=== PATIENT | female | born 1980 | race Caucasian/White ===

== ENCOUNTER → 2021-05-01 | Day surgery (SDC) | payer OTHER ==
[~2021-05-01] MED LIST: KETAMINE HCL 200 MG/20 ML VIAL ONE; KETAMINE HCL 500 MG/10 ML VIAL ONE; PROPOFOL 20 ML ONE; SUCCINYLCHOLINE CHLORIDE 200 MG/10 ML SYRINGE ONE
[2021-05-01 08:58] VITALS: BMI 21.4
[2021-05-01 11:10] VITALS: TEMP 98.1
[2021-05-01 11:16] VITALS: BP 101/69; PULSE 79
== END | disposition home or self-care (01) ==
LOC: FECT 08:01
PROVIDERS: ATTEND Psychiatry & Neurology Psychiatry
PROC: GZB4ZZZ Other Electroconvulsive Therapy (ICD-10-PCS; principal; 2021-05-01 10:30)
DX: F32.9 Major depressive disorder, single episode, unspecified (principal)
CPT/HCPCS: 84703; 90870; 94760; C9803; U0003; U0005

== ENCOUNTER 2021-05-04 06:28 | Day surgery (SDC) | payer OTHER ==
[2021-05-01 11:09] VITALS: BMI 21.2
[2021-05-04 09:28] VITALS: TEMP 98.1
[2021-05-04 09:52] VITALS: BP 112/61; PULSE 71
== END 2021-05-04 09:53 | disposition home or self-care (01) ==
LOC: FECT 06:28
PROVIDERS: ATTEND Psychiatry & Neurology Psychiatry
PROC: GZB4ZZZ Other Electroconvulsive Therapy (ICD-10-PCS; principal; 2021-05-04 08:30)
DX: F32.9 Major depressive disorder, single episode, unspecified (principal)
CPT/HCPCS: 90870; 94760

== ENCOUNTER 2021-05-05 05:58 | Day surgery (SDC) | payer OTHER ==
[2021-05-04 10:08] VITALS: BMI 21.2
[2021-05-05] MEDS ORDERED: KETAMINE HCL 500 MG/10 ML VIAL ONE (07:29)
[2021-05-05 08:10] VITALS: TEMP 98.6
[2021-05-05 08:52] VITALS: BP 101/65; PULSE 67
== END 2021-05-05 09:00 | disposition home or self-care (01) ==
LOC: FECT 05:58
PROVIDERS: ATTEND Psychiatry & Neurology Psychiatry
PROC: GZB4ZZZ Other Electroconvulsive Therapy (ICD-10-PCS; principal; 2021-05-05 07:30)
DX: F32.9 Major depressive disorder, single episode, unspecified (principal)
CPT/HCPCS: 81025; 90870; 94760; C9803; U0003; U0005

== ENCOUNTER 2021-05-08 07:21 | Day surgery (SDC) | payer OTHER ==
[2021-05-08 07:52] VITALS: BMI 21.9
[2021-05-08] MEDS ORDERED: KETAMINE HCL 500 MG/10 ML VIAL ONE (09:04)
[2021-05-08 09:49] VITALS: PULSE 68
[2021-05-08 10:30] VITALS: BP 114/70; TEMP 97.8
== END 2021-05-08 10:30 | disposition home or self-care (01) ==
LOC: FECT 07:21
PROVIDERS: ATTEND Psychiatry & Neurology Psychiatry
PROC: GZB4ZZZ Other Electroconvulsive Therapy (ICD-10-PCS; principal; 2021-05-08 09:30)
DX: F32.9 Major depressive disorder, single episode, unspecified (principal)
CPT/HCPCS: 90870; 94760; C9803; U0003; U0005

== ENCOUNTER 2021-05-11 06:54 | Day surgery (SDC) | payer OTHER ==
[2021-05-02 16:34] VITALS: BMI 21.2
[2021-05-11] MEDS ORDERED: KETAMINE HCL 500 MG/10 ML VIAL ONE (08:40)
[2021-05-11 09:40] VITALS: PULSE 88; TEMP 98.4
[2021-05-11 09:42] VITALS: BP 120/70
== END 2021-05-11 10:02 | disposition home or self-care (01) ==
LOC: FECT 06:54
PROVIDERS: ATTEND Psychiatry & Neurology Psychiatry
PROC: GZB4ZZZ Other Electroconvulsive Therapy (ICD-10-PCS; principal; 2021-05-11 09:00)
DX: F32.9 Major depressive disorder, single episode, unspecified (principal)
CPT/HCPCS: 84703; 90870; 94760

== ENCOUNTER 2021-05-12 05:57 | Day surgery (SDC) | payer OTHER ==
[2021-05-08 12:53] VITALS: BMI 21.9
[2021-05-12] MEDS ORDERED: KETAMINE HCL 500 MG/10 ML VIAL ONE (07:26)
[2021-05-12] MEDS ORDERED: SUCCINYLCHOLINE CHLORIDE 200 MG/10 ML SYRINGE ONE (07:40)
[2021-05-12 08:32] VITALS: PULSE 72
[2021-05-12 08:52] VITALS: BP 123/75; TEMP 97.7
== END 2021-05-12 08:45 | disposition home or self-care (01) ==
LOC: FECT 05:57
PROVIDERS: ATTEND Psychiatry & Neurology Psychiatry
PROC: GZB4ZZZ Other Electroconvulsive Therapy (ICD-10-PCS; principal; 2021-05-12 07:30)
DX: F32.9 Major depressive disorder, single episode, unspecified (principal)
CPT/HCPCS: 90870; 94760; C9803; U0003; U0005

== ENCOUNTER 2021-05-15 06:45 | Day surgery (SDC) | payer OTHER ==
[2021-05-08 12:56] VITALS: BMI 21.9
[2021-05-15] MEDS ORDERED: PROPOFOL 20 ML ONE (09:11)
[2021-05-15] MEDS ORDERED: SUCCINYLCHOLINE CHLORIDE 200 MG/10 ML SYRINGE ONE (09:11)
[2021-05-15] MEDS ORDERED: KETAMINE HCL 500 MG/10 ML VIAL ONE (09:12)
[2021-05-15 10:02] VITALS: TEMP 98.4
[2021-05-15 10:19] VITALS: BP 118/70; PULSE 75
== END 2021-05-15 10:30 | disposition home or self-care (01) ==
LOC: FECT 06:45
PROVIDERS: ATTEND Psychiatry & Neurology Psychiatry
PROC: GZB4ZZZ Other Electroconvulsive Therapy (ICD-10-PCS; principal; 2021-05-15 09:00)
DX: F32.9 Major depressive disorder, single episode, unspecified (principal)
CPT/HCPCS: 81025; 90870; 94760; C9803; U0003; U0005

== ENCOUNTER 2021-05-18 06:12 | Day surgery (SDC) | payer OTHER ==
[2021-05-11 08:03] VITALS: BMI 21.9
[2021-05-18] MEDS ORDERED: KETAMINE HCL 500 MG/10 ML VIAL ONE (07:21)
[2021-05-18 08:01] VITALS: TEMP 97.2
[2021-05-18 09:02] VITALS: BP 110/72; PULSE 76
== END 2021-05-18 09:06 | disposition home or self-care (01) ==
LOC: FECT 06:12
PROVIDERS: ATTEND Psychiatry & Neurology Psychiatry
PROC: GZB4ZZZ Other Electroconvulsive Therapy (ICD-10-PCS; principal; 2021-05-18 08:00)
DX: F32.9 Major depressive disorder, single episode, unspecified (principal)
CPT/HCPCS: 90870; 94760

== ENCOUNTER 2021-05-19 05:56 | Day surgery (SDC) | payer OTHER ==
[2021-05-11 07:57] VITALS: BMI 21.9
[2021-05-19] MEDS ORDERED: KETAMINE HCL 500 MG/10 ML VIAL ONE (06:56)
[2021-05-19 08:12] VITALS: PULSE 74; TEMP 97.8
[2021-05-19 09:22] VITALS: BP 118/71
== END 2021-05-19 09:00 | disposition home or self-care (01) ==
LOC: FECT 05:56
PROVIDERS: ATTEND Psychiatry & Neurology Psychiatry
PROC: GZB4ZZZ Other Electroconvulsive Therapy (ICD-10-PCS; principal; 2021-05-19 07:30)
DX: F32.9 Major depressive disorder, single episode, unspecified (principal)
CPT/HCPCS: 81025; 90870; 94760; C9803; U0003; U0005

== ENCOUNTER 2021-05-22 06:02 | Day surgery (SDC) | payer OTHER ==
[2021-05-22 06:35] VITALS: BMI 21.9
[2021-05-22] MEDS ORDERED: KETAMINE HCL 500 MG/10 ML VIAL ONE (07:11)
[2021-05-22 08:11] VITALS: TEMP 98.2
[2021-05-22 08:35] VITALS: BP 121/82; PULSE 78
== END 2021-05-22 08:38 | disposition home or self-care (01) ==
LOC: FECT 06:02
PROVIDERS: ATTEND Psychiatry & Neurology Psychiatry
PROC: GZB4ZZZ Other Electroconvulsive Therapy (ICD-10-PCS; principal; 2021-05-22 07:30)
DX: F32.9 Major depressive disorder, single episode, unspecified (principal)
CPT/HCPCS: 90870; 94760

== ENCOUNTER 2021-07-13 08:59 | Day surgery (SDC) | payer OTHER ==
[2021-07-13 10:14] VITALS: TEMP 98.1; BMI 21.6
[2021-07-13] MEDS ORDERED: KETAMINE HCL 500 MG/10 ML VIAL ONE (10:29)
[2021-07-13 12:26] VITALS: BP 124/74; PULSE 84
== END 2021-07-13 12:15 | disposition home or self-care (01) ==
LOC: FECT 08:59
PROVIDERS: ATTEND Psychiatry & Neurology Psychiatry
PROC: GZB4ZZZ Other Electroconvulsive Therapy (ICD-10-PCS; principal; 2021-07-13 10:30)
DX: F32.9 Major depressive disorder, single episode, unspecified (principal)
CPT/HCPCS: 84703; 90870; 94760

== ENCOUNTER 2021-07-20 07:20 | Day surgery (SDC) | payer OTHER ==
[2021-07-19 13:06] VITALS: BMI 21.6
[2021-07-20] MEDS ORDERED: KETAMINE HCL 500 MG/10 ML VIAL ONE (08:59)
[2021-07-20 10:05] VITALS: PULSE 60; TEMP 98
[2021-07-20 10:35] VITALS: BP 118/72
== END 2021-07-20 10:38 | disposition home or self-care (01) ==
LOC: FECT 07:20
PROVIDERS: ATTEND Psychiatry & Neurology Psychiatry
PROC: GZB4ZZZ Other Electroconvulsive Therapy (ICD-10-PCS; principal; 2021-07-20 09:00)
DX: F32.9 Major depressive disorder, single episode, unspecified (principal)
CPT/HCPCS: 84703; 90870; 94760

== ENCOUNTER 2021-07-24 05:55 | Day surgery (SDC) | payer OTHER ==
[2021-07-24 06:45] VITALS: BMI 21.6
[2021-07-24] MEDS ORDERED: KETAMINE HCL 500 MG/10 ML VIAL ONE (07:21)
[2021-07-24 08:38] VITALS: TEMP 97.8
[2021-07-24 08:56] VITALS: BP 122/73; PULSE 76
== END 2021-07-24 08:58 | disposition home or self-care (01) ==
LOC: FECT 05:55
PROVIDERS: ATTEND Psychiatry & Neurology Psychiatry
PROC: GZB4ZZZ Other Electroconvulsive Therapy (ICD-10-PCS; principal; 2021-07-24 07:30)
DX: F32.9 Major depressive disorder, single episode, unspecified (principal)
CPT/HCPCS: 81025; 90870; 94760; C9803; U0003; U0005

== ENCOUNTER 2021-07-27 05:51 | Day surgery (SDC) | payer OTHER ==
[2021-07-25 17:05] VITALS: BMI 21.6
[2021-07-27] MEDS ORDERED: KETAMINE HCL 500 MG/10 ML VIAL ONE (07:21)
[2021-07-27 08:27] VITALS: TEMP 97.7
[2021-07-27 08:54] VITALS: BP 116/72; PULSE 72
== END 2021-07-27 08:56 | disposition home or self-care (01) ==
LOC: FECT 05:51
PROVIDERS: ATTEND Psychiatry & Neurology Psychiatry
PROC: GZB4ZZZ Other Electroconvulsive Therapy (ICD-10-PCS; principal; 2021-07-27 07:30)
DX: F32.9 Major depressive disorder, single episode, unspecified (principal)
CPT/HCPCS: 81025; 90870; 94760; C9803; U0003; U0005

== ENCOUNTER 2021-07-31 06:11 | Day surgery (SDC) | payer OTHER ==
[2021-07-28 16:23] VITALS: BMI 21.6
[2021-07-31] MEDS ORDERED: KETAMINE HCL 500 MG/10 ML VIAL ONE (07:28)
[2021-07-31 08:12] LABS: ALBUMIN 3.7 g/dl (3.4-5.0); BILIRUBIN,TOTAL 0.6 mg/dl (0.2-1); CALCIUM 8.9 mg/dl (8.5-10); CREATININE 0.9 mg/dl (0.55-1.3); TOT PROT 6.2 g/dl (6.4-8.2)
[2021-07-31 08:22] VITALS: TEMP 97.7
[2021-07-31 08:56] VITALS: BP 116/64; PULSE 82
[2021-07-31 09:22] LABS: BASO % 1.1 % (0-2.0); EOS % 5.8 % (0-4.5); HEMATOCRIT 36.4 % (32.4-45.2); HEMOGLOBIN 12.4 GM/dL (10.7-15.3); LYMPH % 24.8 % (8-40); MCH 30.5 pg (25.7-33.7); MCHC 33.9 g/dl (32.0-36.0); MEAN CELL VOLUME 89.8 fl (80-96); MEAN PLT VOLUME 7.5 fl (7.5-11.1); MONO % 7.4 % (3.8-10.2); NEUT % 60.9 % (42.8-82.8); PLATELET COUNT 378 10^3/uL (134-434); RBC 4.05 M/mm3 (3.60-5.2); RDW 15.1 % (11.6-15.6); WHITE BLOOD COUNT 5.6 K/mm3 (4.0-10.0)
== END 2021-07-31 09:00 | disposition home or self-care (01) ==
LOC: FECT 06:11
PROVIDERS: ATTEND Psychiatry & Neurology Psychiatry
PROC: GZB4ZZZ Other Electroconvulsive Therapy (ICD-10-PCS; principal; 2021-07-31 07:30)
DX: F33.9 Major depressive disorder, recurrent, unspecified (principal)
CPT/HCPCS: 36415; 80053; 81025; 85025; 90870; 94760

== ENCOUNTER 2021-08-07 05:55 | Day surgery (SDC) | payer OTHER ==
[2021-08-01 10:45] VITALS: BMI 21.6
[2021-08-07] MEDS ORDERED: KETAMINE HCL 500 MG/10 ML VIAL ONE (07:26)
[2021-08-07 08:18] VITALS: TEMP 97.8
[2021-08-07 08:56] VITALS: BP 116/72; PULSE 81
== END 2021-08-07 08:58 | disposition home or self-care (01) ==
LOC: FASU 05:55 → FECT 05:55 → FASU 08:58
PROVIDERS: ATTEND Psychiatry & Neurology Psychiatry
PROC: GZB4ZZZ Other Electroconvulsive Therapy (ICD-10-PCS; principal; 2021-08-07 07:30)
DX: F33.2 Major depressive disorder, recurrent severe without psychotic features (principal)
CPT/HCPCS: 81025; 90870; 94760; C9803; U0003; U0005

== ENCOUNTER 2021-08-10 05:58 | Day surgery (SDC) | payer OTHER ==
[2021-08-10 06:47] VITALS: BMI 21.6
[2021-08-10] MEDS ORDERED: KETAMINE HCL 500 MG/10 ML VIAL ONE (07:31)
[2021-08-10] MEDS ORDERED: ONDANSETRON 4 MG/2 ML VIAL ONE (07:35)
[2021-08-10] MEDS ORDERED: LIDOCAINE HCL/PF 2% SDV 5ML VIAL ONE (07:35)
[2021-08-10] MEDS ORDERED: PROPOFOL 20 ML ONE (07:36)
[2021-08-10] MEDS ORDERED: SUCCINYLCHOLINE CHLORIDE 200 MG/10 ML SYRINGE ONE (07:36)
[2021-08-10 08:39] VITALS: TEMP 97.8
[2021-08-10 08:58] VITALS: BP 110/67; PULSE 58
[2021-08-12 05:06] LABS: SARS-CoV-2 NAA Not Detected (Not Detected)
== END 2021-08-10 09:00 | disposition home or self-care (01) ==
LOC: FECT 05:58
PROVIDERS: ATTEND Psychiatry & Neurology Psychiatry
PROC: GZB4ZZZ Other Electroconvulsive Therapy (ICD-10-PCS; principal; 2021-08-10 07:30)
DX: F32.9 Major depressive disorder, single episode, unspecified (principal)
CPT/HCPCS: 90870; 94760; C9803; U0003; U0005

== ENCOUNTER 2021-08-14 05:56 | Day surgery (SDC) | payer OTHER ==
[2021-08-10 14:52] VITALS: BMI 21.6
[2021-08-14] MEDS ORDERED: KETAMINE HCL 500 MG/10 ML VIAL ONE (07:35)
[2021-08-14 08:29] VITALS: TEMP 97.7
[2021-08-14 09:02] VITALS: BP 116/72; PULSE 72
[2021-08-15 14:13] LABS: SARS-CoV-2 NAA Not Detected (Not Detected)
== END 2021-08-14 09:14 | disposition home or self-care (01) ==
LOC: FECT 05:56
PROVIDERS: ATTEND Psychiatry & Neurology Psychiatry
PROC: GZB4ZZZ Other Electroconvulsive Therapy (ICD-10-PCS; principal; 2021-08-14 07:30)
DX: F32.9 Major depressive disorder, single episode, unspecified (principal)
CPT/HCPCS: 81025; 90870; 94760; C9803; U0003; U0005

== ENCOUNTER 2021-08-29 05:53 | Day surgery (SDC) | payer OTHER ==
[2021-08-23 08:29] VITALS: BMI 21.6
[2021-08-29] MEDS ORDERED: KETAMINE HCL 500 MG/10 ML VIAL ONE (07:22)
[2021-08-29 09:27] VITALS: BP 108/60; PULSE 78; TEMP 97.8
== END 2021-08-29 08:55 | disposition home or self-care (01) ==
LOC: FECT 05:53
PROVIDERS: ATTEND Psychiatry & Neurology Psychiatry
PROC: GZB4ZZZ Other Electroconvulsive Therapy (ICD-10-PCS; principal; 2021-08-29 07:30)
DX: F33.2 Major depressive disorder, recurrent severe without psychotic features (principal)
CPT/HCPCS: 81025; 90870; 94760

== ENCOUNTER 2021-09-04 05:55 | Day surgery (SDC) | payer OTHER ==
[2021-08-15 14:55] VITALS: BMI 21.6
[2021-09-04 08:47] VITALS: BP 110/66; PULSE 61; TEMP 98
== END 2021-09-04 08:45 | disposition home or self-care (01) ==
LOC: FECT 05:55
PROVIDERS: ATTEND Psychiatry & Neurology Psychiatry
PROC: GZB4ZZZ Other Electroconvulsive Therapy (ICD-10-PCS; principal; 2021-09-04 07:30)
DX: F33.2 Major depressive disorder, recurrent severe without psychotic features (principal)
CPT/HCPCS: 81025; 90870; 94760